=== PATIENT | female | born 1980 | race Caucasian/White ===

== ENCOUNTER 2022-09-07 13:37 | Outpatient (REF) | payer BC, SELFPAY | END 2022-09-07 13:38 | disposition home or self-care (01) | LOC: NCHCN 13:37 | PROVIDERS: Visit Provider Nurse Practitioner Family | DX: N30.01 Acute cystitis with hematuria (principal) | CPT/HCPCS: 87077; 87086; 87186 ==

== ENCOUNTER 2023-06-07 12:38 | Outpatient (REF) | payer MEDICAID, SELFPAY ==
[2023-06-07 21:09] LABS: Bilirubin Negative (Negative); Blood Negative (Negative); Clarity Clear (Clear); Glucose Negative (Negative); Ketones Negative (Negative); Leukocyte Esterase Negative (Negative); Nitrite Negative (Negative); Urobilinogen 0.2 mg/dL (Up to 0.2); pH 5.5 (5-8)
== END 2023-06-07 12:39 | disposition home or self-care (01) ==
LOC: LBN 12:38
PROVIDERS: Visit Provider Nurse Practitioner Family
DX: R35.0 Frequency of micturition (principal); R39.15 Urgency of urination; R39.89 Other symptoms and signs involving the genitourinary system
CPT/HCPCS: 81003

== ENCOUNTER 2023-07-05 11:34 | Observation (INO) | payer MEDICAID, SELFPAY ==
[2023-07-05] VITALS (12 sets, daily range): BP systolic 102–115; BP diastolic 53–71; PULSE 57–76; RESP 16–32; TEMP 36.2–37; O2SAT 100
--- NOTE | 2023-07-05 11:53 | ED.GENADUL_ITS ---
Discharge Plan Discharge Details Chief Complaint: GenMedical Primary Care Provider: Unknown,Unknown ED Provider: Beltran Agustin Home Meds and New Rx's Prescriptions: No Action escitalopram oxalate 20 mg tablet 20 mg PO DAILY buspirone 5 mg tablet 5 mg PO BID spironolactone 50 mg tablet 50 mg PO DAILY omeprazole 20 mg capsule,delayed release(DR/EC) 20 mg PO DAILY sumatriptan succinate 50 mg tablet 50 mg PO ONCE valacyclovir 1 gram tablet 1,000 mg PO DAILY HPI General Date/Time Provider Initiated Documentation: 07/05/23 11:53 . HPI Narrative: 42 year-old female presents to ED today by POV/ambulating with a chief complaint of vague constellation of symptoms- onset while showering on Wednesday- states she felt dizzy, then felt her legs were very heavy, vision was off, had to sit down for quite some time, and has been having trouble walking since then, she began to sweat and was shaking all over- but stayed awake the whole time. Quality described as felt very weird- has had brain fog since then as well, no radiation to palpitations, chest pain, syncope, loss of vision, fever, nausea/vomiting- states she does get dizzy with certain eye movements. Severity is described as severe. Palliating factors include nothing helping. 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 Patient not anticoagulated. Related Data Home Medications Medication Instructions Recorded Confirmed buspirone 5 mg tablet 5 mg PO BID 06/07/23 07/05/23 escitalopram oxalate 20 mg tablet 20 mg PO DAILY 06/07/23 07/05/23 omeprazole 20 mg capsule,delayed 20 mg PO DAILY 06/07/23 07/05/23 release spironolactone 50 mg tablet 50 mg PO DAILY 06/07/23 07/05/23 sumatriptan succinate 50 mg tablet 50 mg PO ONCE 06/07/23 07/05/23 valacyclovir 1 gram tablet 1,000 mg PO DAILY 06/07/23 07/05/23 Allergies Allergy/AdvReac Type Severity Reaction Status Date / Time No Known Allergies Allergy Verified 07/05/23 11:45 General Stated Complaint: GenMedical YAMILEX: 4 Review of Systems All systems reviewed & are unremarkable except as noted in HPI and below Exam Narrative Exam Narrative: GENERAL APPEARANCE: Well-nourished, non-toxic, awake and alert, atraumatic, no acute distress. SKIN: Warm, pink, dry, intact, without rashes/lesions/ulcerations. HEAD: Normocephalic, atraumatic, normal hair distribution for gender/age. EYES: Pupils PERRLA, EOMs intact with nystagmus, question very subtle vertical nystagmus, normal conjunctiva, no exudates on lids/lashes. ENT: Nares patent, no circumoral cyanosis, no facial swelling NECK: Supple, trachea midline, painless cervical ROM. LUNGS/CHEST: Lungs CTA bilaterally- no rhonchi/rales/wheezes diffusely, non- labored respirations, normal A/P diameter, symmetrical expansion, no chest wall deformity HEART (CV/PV): Regular rate and rhythm without murmur, no peripheral edema, no JVD, no caortid bruit. ABDOMEN: Soft, non-distended, no guarding, no tenderness. MSK: Normal ROM, no swelling/deformity to bilateral UEs or LEs, moving all extremities without weakness, no cyanosis, spine midline without tenderness, normal curvature. NEURO: Mental Status AAOx4 - alert to person, place, time, events No facial droop, no forehead involvement, some dysmetria with FNF on R hand, heel-conklin mildly abnormal also on R Motor: No focal weakness - strength 5/5 in bilateral UEs and LEs, proximal and distal, symmetric, question mild 4+/5 deficit in proximal legs Sensory: sensation intact to light touch globally. Gait ataxic & unsteady with heel walking, with [id number], Romberg present PSYCH: euthymic, cooperative, pleasant, appropriate speech Course Vital Signs Vital signs: Vital Signs Temperature 37.0 C 07/05/23 11:47 Pulse 72 07/05/23 11:47 Respiratory Rate 16 07/05/23 11:47 Blood Pressure 115/71 07/05/23 11:47 Pulse Oximetry 100 07/05/23 11:47 Temperature 37.0 C 07/05/23 11:47 Temperature Source Temporal Artery Scan 07/05/23 11:47 Pulse 72 07/05/23 11:47 Respiratory Rate 16 07/05/23 11:47 Respiratory Effort Normal, Non-Labored 07/05/23 11:51 Blood Pressure 115/71 07/05/23 11:47 Blood Pressure Position Sitting 07/05/23 11:47 Pulse Oximetry 100 07/05/23 11:47 Oxygen Delivery Method Room Air 07/05/23 11:47 Oxygen Flow Rate 0 07/05/23 11:47 Pain Level 0 07/05/23 11:47 Medical Decision Making This dictation utilizes [id number] dictation software and may contain unedited grammatical errors. 42 y/o F presents to ED today with a chief complaint of neurologic changes starting while taking a shower on Wednesday- reports her legs began to feel weak, had to sit down, got very flushed and was shaking- had visual changes that have been intermittent since then, and dizziness, with confusion- has a persistent headache since then. Patient denies stroke history, has been worked up for MS and treated for anaplasmosis in the past. Patient denies palpitations, chest pain, can recall the events, denies headstrike. Patients' medical history: Migraine syndrome. Family and social history: Noncontributory states her father had COPD, mother is alive and well. Pertinent exam findings / vital signs include dysmetria with [id number] on the right side as well as heel conklin on the right lower extremity, question vertical nystagmus-very subtle, Romberg present with unsteady gait, benign cardiopulmonary exam. Differential / pathologies of concern include CVA/TIA, SAH, Neuromuscular Disorder, Complex Migraine Syndrome. Diagnostic studies of: -CBC, BMP, CK, liver panel, CRP/ESR, EKG, POC urine test, TSH, ammonia, lactate, magnesium, tick panel, CTA head and neck. -CBC benign -BMP benign -LFTs wnl -CK mildly elevated, not to rhabdomyolysis levels -CRP/ESR WNL -TSH WNL -Ammonia negative -Lactate WNL -Magnesium WNL -Tick panel send out pending -POC Urine preg pending at time of sign-out -CTA not performed at time of sign-out Interventions of: -none. ED Course/Assessment/Plan: 42-year-old female presents with strange onset of dizziness and visual changes with some leg weakness on Wednesday while taking a shower. She has some dysmetria with the right upper and lower extremities as well as a question of subtle vertical nystagmus. Patient's laboratory workup is unremarkable I do not suspect metabolic encephalopathy, the patient has been had anaplasmosis treatment in the past as well as been worked up for MS. She is well outside of any window of intervention if this is a possible CVA if confirmed on CTA study. I signed out the patient to Sruthi Sarah PA-C at the time of shift change with pending imaging, she may need admission for CVA or TIA versus outpatient follow- up for neurology depending on findings. Findings not consistent with seizure activity, dispostion pending at sign-out. Medical Records Medical records reviewed: Yes I reviewed the patient's medical records. Lab Data Lab results reviewed: Yes I reviewed the patient's lab results. Labs: Laboratory Tests Range/Units 07/05/23 13:53 WBC (4.4-10.8) 10^3/uL 8.01 RBC (3.93-5.22) 10^6/uL 4.50 Hgb (11.2-15.7) g/dL 15.1 Hct (36.0-46.0) % 43.7 MCV (80-95) fL 97 H MCH (27.0-33.0) pg 33.6 H MCHC (32.0-36.0) % 34.6 RDW (11.7-14.6) % 11.9 Plt Count (130-400) 10^3/uL 217 MPV (8.0-11.0) fL 10.1 Immature Gran % 0.2 Neutrophils % 70.6 Lymphocytes % 22.3 Monocytes % 4.7 Eosinophils % 2.0 Basophils % 0.2 Nucleated RBC % (0.0-0.3) % 0.0 Absolute Neutrophils (1.2-6.7) 10^3/uL 5.64 Absolute Lymphocytes (1.2-3.4) 10^3/uL 1.79 Absolute Monocytes (0.1-0.8) 10^3/uL 0.38 Absolute Eosinophils (0.0-0.7) 10^3/uL 0.16 Absolute Basophils (0.0-0.2) 10^3/uL 0.02 ESR (0-20) mm/hr < 1 VBG Lactate (0.6-1.4) mmol/L 0.9 Sodium (136-145) mmol/L 141 Potassium (3.5-5.1) mmol/L 3.4 L Chloride (98-107) mmol/L 104 Carbon Dioxide (21.0-32.0) mmol/L 26.3 Anion Gap (3-11) mmol/L 10.7 BUN (7-18) mg/dL 9 Creatinine (0.55-1.02) mg/dL 0.6 Est GFR (CKD-EPI 2020) (mL/min/1.73m2) 114.86 Glucose (74-106) mg/dL 85 Calcium (8.5-10.1) mg/dL 8.5 Magnesium (1.8-2.4) mg/dL 1.8 Total Bilirubin (0.2-1.0) mg/dL 0.8 Conjugated Bilirubin (0.0-0.2) mg/dL 0.2 AST (15-37) U/L 29 ALT (14-59) U/L 22 Alkaline Phosphatase (46-116) U/L 47 Ammonia (11-32) umol/L 13 Creatine Kinase (26-192) U/L 195 H C-Reactive Protein (<or=0.5) mg/dL < 0.50 Total Protein (6.4-8.2) g/dL 6.4 Albumin (3.4-5.0) g/dL 3.8 TSH (0.36-3.74) uIU/mL 1.73 Quality:SDOH Health Related Social Needs: No Data to Display [facility] Social History Smoking/Tobacco Use Status: Never Smoking risk assessment performed?: Yes Alcohol Intake: never Drug use: Never Substance use type: does not use Housing: house Do you feel safe at home: Yes Do you feel safe in your relationship?: Yes Sign Out Sign Out Data: Sign Out Comment: Ataxia & dysmetria, onset Wednesday - visual changes, confusion, BURRELL, tingling of face -CTA pending, possibility for MRI -Question CVA/TIA, vs neuromuscular disorder (has had MS workup in the past) Last updated by Beltran Agustin PA at 07/05/23 15:49
--- NOTE | 2023-07-05 13:30 | DI.CT_ITS ---
Exam(s) CT BRAIN NECK CTA EXAM: CT BRAIN NECK CTA CLINICAL HISTORY: ataxic, dysmetria R hand. TECHNIQUE: Imaging Protocol: Axial CT angiography was performed with multi-slice acquisition and mu lti-planar and MIP reconstructions. CONTRAST MATERIAL: Intravenous: Omnipaque 350 Contrast volume:100 ml COMPARISON: No exams were available for comparison FINDINGS: CT Head W/O and W contrast: Ventricles and Extra axial spaces: Normal in size and morphology for the patient's age. Hemorrhage: None. Cerebral parenchyma: No evidence of acute infarct or mass. Midline shift: None. Brainstem/Cerebellum: No acute findings.. Calvarium: Normal. Visualized Paranasal sinuses/Mastoids: Clear. Soft Tissues: Unremarkable. Enhancement: Normal. CTA Brain W: Internal Carotid Arteries: Petrous: Normal. Cavernous: Normal. Cerebral: Normal. Middle Cerebral Arteries: Right: No aneurysm, occlusion or significant stenosis. Left: No aneurysm, occlusion or significant stenosis. Anterior Cerebral Arteries: Right: No aneurysm, occlusion or significant stenosis. Left: No aneurysm, occlusion or significant stenosis. Posterior cerebral Arteries: Right: No aneurysm, occlusion or significant stenosis. Left: No aneurysm, occlusion or significant stenosis. Vertebral Arteries: Right: No aneurysm, occlusion or significant stenosis. Left: No aneurysm, occlusion or significant stenosis. Basilar Artery: No aneurysm, occlusion or significant stenosis. CTA Neck W: Common Carotid: Right: No dissection, occlusion or significant stenosis. Left: No dissection, occlusion or significant stenosis. External Carotid: Right: No dissection, occlusion or significant stenosis. Left: No dissection, occlusion or significant stenosis. Internal Carotid: Right: No dissection, occlusion or significant stenosis. Left: No dissection, occlusion or significant stenosis. Vertebral Artery: Right: No dissection, occlusion or significant stenosis. Left: No dissection, occlusion or significant stenosis. Lung Apices: Normal. Bones: No acute abnormality. Soft Tissues: Bilateral breast implants partially included on the exam. IMPRESSION: 1. CTA brain: Normal CTA examination of the [place]. 2. Head CT: Unremarkable CT Head. 3. CTA neck: Normal CTA examination of the neck. RADIATION DOSE DELIVERED: 1,878.6mGy.cm Total DLP DATA REPOSITORY: All CT scans at this facility are submitted to the National Radiology Data Registry (NRDR) Dose Index Registry (DIR) with the [employer] ([employer]). RADIATION OPTIMIZATION: All CT scans at this facility use at least one of these dose optimization te chniques: automated exposure control; mA and/or kV adjustment per patient size (includes targeted exa ms where dose is matched to clinical indication); or iterative reconstruction.
--- NOTE | 2023-07-05 13:30 | RT.EKG_ITS ---
APPROVED REPORT Exam: Resting ECG Reason for Exam: baseline Patient Location: E HR:60 bpm ECG Measurements Heart Rate 60 AXIS RI 177 P 20 QRSd 92 QRS 68 QT 432 T 73 QTc 431 Conclusion Sinus rhythm...normal P axis, V-rate 60- 99 Physician: no stemi
[2023-07-05 14:03] LABS: Abs Immature Grans 0.02 10^3/uL (0.0-0.06); Absolute Basophil Count 0.02 10^3/uL (0.0-0.2); Absolute Eosinophil Count 0.16 10^3/uL (0.0-0.7); Absolute Lymphocyte Count 1.79 10^3/uL (1.2-3.4); Absolute Monocyte Count 0.38 10^3/uL (0.1-0.8); Absolute Neutrophil Count 5.64 10^3/uL (1.2-6.7); Basophils % 0.2; HCT 43.7 % (36.0-46.0); HGB 15.1 g/dL (11.2-15.7); Immature Grans % 0.2; Lymphocytes % 22.3; MCH 33.6 pg (27.0-33.0); MCHC 34.6 % (32.0-36.0); MCV 97 fL (80-95); MPV 10.1 fL (8.0-11.0); Monocytes % 4.7; Neutrophils % 70.6; Platelet Count 217 10^3/uL (130-400); RDW 11.9 % (11.7-14.6); WBC 8.01 10^3/uL (4.4-10.8)
[2023-07-05 14:05] LABS: Lactate 0.9 mmol/L (0.6-1.4)
[2023-07-05 14:07] LABS: ESR < 1 mm/hr (0-20)
[2023-07-05 14:22] LABS: Ammonia 13 umol/L (11-32)
[2023-07-05 14:31] LABS: ALT 22 U/L (14-59); AST 29 U/L (15-37); Albumin 3.8 g/dL (3.4-5.0); Alkaline Phosphatase 47 U/L (46-116); Anion Gap 10.7 mmol/L (3-11); BUN 9 mg/dL (7-18); Bilirubin, Direct 0.2 mg/dL (0.0-0.2); Bilirubin, Total 0.8 mg/dL (0.2-1.0); CO2 26.3 mmol/L (21.0-32.0); CREATININE 0.6 mg/dL (0.55-1.02); Calcium 8.5 mg/dL (8.5-10.1); Chloride 104 mmol/L (98-107); Creatine Kinase 195 U/L (26-192); Estimated GFR 114.86 (mL/min/1.73m2); Glucose 85 mg/dL (74-106); Magnesium 1.8 mg/dL (1.8-2.4); Potassium 3.4 mmol/L (3.5-5.1); Sodium 141 mmol/L (136-145); TSH (W/Ref FT4) 1.73 uIU/mL (0.36-3.74); Total Protein 6.4 g/dL (6.4-8.2)
[2023-07-05 14:32] LABS: C-Reactive Protein < 0.50 mg/dL (<or=0.5)
[2023-07-05] MEDS: Omnipaque 350 MG/ML 100 ML BTL IJ (16:16)
[2023-07-05] MEDS: Normal Saline - Diluent 50 ML VIAL IJ (16:18)
[2023-07-05] MEDS: ACETAMINOPHEN 1,000 MG/100 ML BTL 400 MG IVPB (18:15)
[2023-07-05] MEDS: Normal Saline 1,000 ML 1000 ML IV (18:15)
[2023-07-05] MEDS: Aspirin 81 MG CHEW 162 MG PO (18:15)
[2023-07-05 18:22] LABS: Troponin I < 50 ng/L (< or =60)
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
--- NOTE | 2023-07-05 20:01 | W.PC.ACHO ---
Registration Status: REG ER Primary Language: Preferred Language: ED Information & Data Chief Complaint GenMedical 07/05/23 14:11 Chief Complaint GenMedical 07/05/23 11:54 Triage Note pt with mult vague 07/05/23 11:47 complaints starting Sat with weakness and then took shower with pre-syncopal event followed by shaking/ sweating/awake and alert convulsion lasting 2-3 mins, cont weakness and visual issues, cont to feel cloudy and 'off/weird', hx of RA not on reg infusions since Nov r/t move, VSS. Most Recent Vital Signs Temperature 37.0 C 07/05/23 14:12 Temperature Source Temporal Artery Scan 07/05/23 14:12 Pulse 72 07/05/23 14:12 Pulse 65 07/05/23 17:30 Respiratory Rate 16 07/05/23 14:12 Respiratory Effort Normal, Non-Labored 07/05/23 14:12 Blood Pressure 115/71 07/05/23 14:12 Blood Pressure Position Sitting 07/05/23 14:12 Pulse Oximetry 100 07/05/23 14:12 Oxygen Delivery Method Room Air 07/05/23 14:12 Oxygen Flow Rate 0 07/05/23 14:12 Pain Level 0 07/05/23 14:12 Allergies No Known Allergies Allergy (Verified 07/05/23 11:45) Precautions Isolation Standard precaution 07/05/23 11:51 Active Medications Generic Name Dose Route Start Last Admin Trade Name Freq PRN Reason Stop Dose Admin Iohexol 100 ml 07/05/23 16:30 07/05/23 16:16 Omnipaque 350 Mg/Ml 100 Ml Btl IJ 08/04/23 23:59 85 ml DIRECTED RADHA Administration Sodium Chloride 50 ml 07/05/23 16:30 07/05/23 16:18 Normal Saline - Diluent 50 Ml Vial IJ 50 ml .FOR DI USE RADHA Administration IV IV Catheter Type [Left Saline Lock Antecubital] IV Catheter Gauge [Left 18 Antecubital] Diet Orders Category Date Time Status Regular/Normal [DIET] Nutrition 07/06/23 Breakfast Ordered Diagnostics 07/05/23 07/05/23 Range/Units 17:58 13:53 WBC 8.01 (4.4-10.8) 10^3/uL RBC 4.50 (3.93-5.22) 10^6/uL Hgb 15.1 (11.2-15.7) g/dL Hct 43.7 (36.0-46.0) % MCV 97 H (80-95) fL MCH 33.6 H (27.0-33.0) pg MCHC 34.6 (32.0-36.0) % RDW 11.9 (11.7-14.6) % Plt Count 217 (130-400) 10^3/uL MPV 10.1 (8.0-11.0) fL Immature Gran % 0.2 Neutrophils % 70.6 Lymphocytes % 22.3 Monocytes % 4.7 Eosinophils % 2.0 Basophils % 0.2 Nucleated RBC % 0.0 (0.0-0.3) % Absolute Neutrophils 5.64 (1.2-6.7) 10^3/uL Absolute Lymphocytes 1.79 (1.2-3.4) 10^3/uL Absolute Monocytes 0.38 (0.1-0.8) 10^3/uL Absolute Eosinophils 0.16 (0.0-0.7) 10^3/uL Absolute Basophils 0.02 (0.0-0.2) 10^3/uL ESR < 1 (0-20) mm/hr VBG Lactate 0.9 (0.6-1.4) mmol/L Sodium 141 (136-145) mmol/L Potassium 3.4 L (3.5-5.1) mmol/L Chloride 104 (98-107) mmol/L Carbon Dioxide 26.3 (21.0-32.0) mmol/L Anion Gap 10.7 (3-11) mmol/L BUN 9 (7-18) mg/dL Creatinine 0.6 (0.55-1.02) mg/dL Est GFR (CKD-EPI 2020) 114.86 (mL/min/1.73m2) Glucose 85 (74-106) mg/dL Calcium 8.5 (8.5-10.1) mg/dL Magnesium 1.8 (1.8-2.4) mg/dL Total Bilirubin 0.8 (0.2-1.0) mg/dL Conjugated Bilirubin 0.2 (0.0-0.2) mg/dL AST 29 (15-37) U/L ALT 22 (14-59) U/L Alkaline Phosphatase 47 (46-116) U/L Ammonia 13 (11-32) umol/L Creatine Kinase 195 H (26-192) U/L Troponin I < 50 (< or =60) ng/L C-Reactive Protein < 0.50 (<or=0.5) mg/dL Total Protein 6.4 (6.4-8.2) g/dL Albumin 3.8 (3.4-5.0) g/dL TSH 1.73 (0.36-3.74) uIU/mL B. divergens/MO-1 PCR Pending Babesia duncani (PCR) Pending Babesia microti DNA PCR Pending Lyme Disease Antibody Pending E.chaffeensis DNA (PCR) Pending E.ewingii/canis DNA PCR Pending E.muris eauclairensis (PCR) Pending A. phagocytophilum (PCR) Pending Blood B. miyamotoi (PCR) Pending Ssfya-mn-Omav Documentation POC Urine Test Start: 07/05/23 13:31 Freq: .Urine Test Status: Active Protocol: Activity Type Activity Date Activity User E-sign Co-sign Detail Recorded Client Recorded Date Recorded By Document 07/05/23 14:51 SUZETTE [id number] 07/05/23 14:51 SUZETTE Intake and Output - 24 Hour Total 07/05/23 11:34 thru 07/05/23 18:36 Intake Total 100 Balance 100 Weight 57.606 kg Intake: IV 100 Falls Risk Assessment History of Falls No History 07/05/23 14:12 Contributing Factors No Factors 07/05/23 14:12 Ambulatory Aids Independent 07/05/23 14:12 Tubes/Lines None 07/05/23 14:12 Gait Evaluation No gait disturbance 07/05/23 14:12 Cognition No cognitive impairment 07/05/23 14:12 Fall Total Score 0 07/05/23 14:12 Level of Risk Standard/Low Risk 07/05/23 14:12 Problems (Last Reviewed 07/05/23 @ 18:32 by Joseph Chase) Acne (Chronic) Migraine headache (Chronic) GERD without esophagitis (Chronic) Depression (Chronic) Traumatic injury of head (Chronic) Receptive dysphasia (Acute) Rheumatoid arthritis in remission (Chronic) Facial asymmetry (Acute) Ataxia (Acute) v v v v v v v v v Sending and/or Receiving Nurses: Please use comment section below to note any information pertinent to the patient hand-off not included above. Information / Comments: Report received from: Oliva BLEVINS
[2023-07-05] MEDS: Acetaminophen 325 MG TAB PO (20:39)
[2023-07-05] MEDS: busPIRone 5 MG TAB PO (20:39)
[2023-07-05] MEDS: Atorvastatin 40 MG TAB 80 MG PO (20:39)
[2023-07-06] VITALS (11 sets, daily range): BP systolic 89–108; BP diastolic 50–64; PULSE 56–102; RESP 13–19; TEMP 36.5–37.4; O2SAT 98–99
[2023-07-06] MEDS: Acetaminophen 325 MG TAB PO (06:26)
[2023-07-06 07:05] LABS: HCT 38.4 % (36.0-46.0); HGB 13.3 g/dL (11.2-15.7); MCH 33.3 pg (27.0-33.0); MCHC 34.6 % (32.0-36.0); MCV 96 fL (80-95); MPV 10.6 fL (8.0-11.0); Platelet Count 194 10^3/uL (130-400); RBC 3.99 10^6/uL (3.93-5.22); RDW 11.9 % (11.7-14.6); RDW-SD 42.1 fL; WBC 3.67 10^3/uL (4.4-10.8)
[2023-07-06 07:20] LABS: ALT 20 U/L (14-59); AST 21 U/L (15-37); Albumin 3.4 g/dL (3.4-5.0); Alkaline Phosphatase 43 U/L (46-116); Anion Gap 9.9 mmol/L (3-11); BUN 9 mg/dL (7-18); Bilirubin, Total 0.8 mg/dL (0.2-1.0); CO2 25.1 mmol/L (21.0-32.0); CREATININE 0.7 mg/dL (0.55-1.02); Calcium 8.2 mg/dL (8.5-10.1); Chloride 108 mmol/L (98-107); Estimated GFR 110.67 (mL/min/1.73m2); Glucose 88 mg/dL (74-106); Potassium 3.8 mmol/L (3.5-5.1); Sodium 143 mmol/L (136-145); Total Protein 5.9 g/dL (6.4-8.2)
[2023-07-06] MEDS: Aspirin 81 MG CHEW PO (08:00)
--- NOTE | 2023-07-06 08:00 | DI.MRI_ITS ---
Exam(s) MR BRAIN WO EXAM: MR BRAIN WO CLINICAL HISTORY: Ataxia with expressive dysphagia, facial asymmetry TECHNIQUE: Multiplanar multisequence MRI of the brain was performed. COMPARISON: CT CT BRAIN NECK CTA from 07/05/2023 FINDINGS: VENTRICLES AND EXTRA AXIAL SPACES: Normal in size and morphology for the patient's age. MIDLINE SHIFT: None. CEREBRAL PARENCHYMA: No focus of restricted diffusion to suggest acute infarct. No space-occupying le karla identified. No abnormal white matter changes. HEMORRHAGE: None. BRAINSTEM/CEREBELLUM: Normal. VISUALIZED PARANASAL SINUSES/MASTOIDS:Clear. Vasculature: Normal flow void. PITUITARY GLAND: Unremarkable. ORBITS: Unremarkable. IMPRESSION: Unremarkable MRI of the brain. DATA REPOSITORY:
[2023-07-06] MEDS: busPIRone 5 MG TAB PO (08:01)
[2023-07-06] MEDS: Omeprazole 20 MG CAPCR PO (08:01)
[2023-07-06] MEDS: Spironolactone 50 MG TAB PO (08:01)
[2023-07-06] MEDS: Escitalopram 20 MG TAB PO (08:01)
--- NOTE | 2023-07-06 08:23 | OT.INNT ---
Occupational Therapy Notes 07/06/23 Consult received and pts chart was reviewed. Pt is down at MRI this morning and OT will attempt to consult with pt again this morning when she returns. Zina Riggs, OTR/L
--- NOTE | 2023-07-06 08:49 | PDOC.CMIN ---
Date of service: 07/06/23 Time of Service: 08:49 Care Management Initial Assmt Initial Assessment REASON FOR HOSPITALIZATION:: ataxia PREVIOUS FUNCTIONAL STATUS/SOCIAL/FAMILY SUPPORTS:: Bre lives in a single family home in [place], [place] with her boyfriend and her 13 year old daughter. 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 CURRENT FUNCTIONAL STATUS:: Bre was lying in bed dozing when CM met with her. She was polite but not very talkative. Bre indicated that her symptoms came on suddenly and she does not usually have any difficulties with ambulation. She informed CM that her PCP was at [facility] but recently left the practice. She does not know the name of the provider she will be assigned to next. She shared that she would like to establish with a local provider, possibly at [facility]. CM explained the process to establish with a new provider. Prior to Bre's discharge an appointment was made with the [facility] Primary Care practice with Trinidad Yancey for the end of June. She will also follow up with [facility] Neurology. ADVANCE DIRECTIVES:: none on file Has patient been provided with info about the portal/API?: Yes Did the patient sign up for the portal?: No CODE STATUS:: Full Code INSURANCE COVERAGE / FINANCIAL ISSUES:: Medicaid CURRENT HOME/COMMUNITY SERVICES/EQUIPMENT:: none PRIMARY CARE PHYSICIAN:: Trinidad Yancey - [facility] POTENTIAL DISCHARGE NEEDS:: possibly establish with local PCP PATIENT/FAMILY EDUCATION NEEDS:: Review of discharge instructions, activity, limitations, follow up plan, discuss Ask Me Three TRANSPORTATION:: via private vehicle with family PLAN:: Anticipate Bre will be discharged home with no new services when medically cleared.. She will follow up with [facility] and her PCP and transport with family. CM will follow and continue to assess for discharge needs. PFSH All Active Problems (Updated 07/05/23 @ 19:00 by Joseph Chase) Acne (Chronic) Migraine headache (Chronic) GERD without esophagitis (Chronic) Depression (Chronic) Traumatic injury of head (Chronic) Receptive dysphasia (Acute) Rheumatoid arthritis in remission (Chronic) Facial asymmetry (Acute) Ataxia (Acute) Social History Smoking/Tobacco Use Status: Never Smoking risk assessment performed?: Yes Alcohol Intake: never Drug use: Never Substance use type: does not use Housing: house Do you feel safe at home: Yes Do you feel safe in your relationship?: Yes SDOH(Care Management) Screening Will the Patient Participate in the Screening?: Yes Do you worry about having a steady place to live?: no Problems where you live: no known problems In the past 12 months, have you had to go without electric, gas, oil or water in your home?: no Have you or anyone in your house had to go without enough food to eat?: no Has lack of transportation kept you from medical appointments or from doing things needed for daily living?: no Has anyone in your support network made you feel unsafe for any reason?: no
--- NOTE | 2023-07-06 08:54 | OT.INIE ---
Occupational Therapy Notes Inpatient Occupational Therapy Evaluation Date: 07/06/23 Referring Doctor: Dr. Benjamin OT Orders: Non Urgent Precautions: Fall, Standard, Full PATIENT PROFILE/ADMITTING DIAGNOSIS: Pt is a 42 year old female who presented to the ED on 07/05/23 reporting her onset while showering on Wednesday. She states she felt dizzy, then felt her legs were very heavy, vision was off, had to sit down for quite some time, and has been having trouble walking since then, she began to sweat and was shaking all over- but stayed awake the whole time. as reported to the ED. She notes that overall she feels fine today except the pressure in her head. Past Medical History: All Active Problems (Updated 07/05/23 @ 19:00 by Joseph Chase) Acne (Chronic) Migraine headache (Chronic) GERD without esophagitis (Chronic) Depression (Chronic) Traumatic injury of head (Chronic) Receptive dysphasia (Acute) Rheumatoid arthritis in remission (Chronic) Facial asymmetry (Acute) Ataxia (Acute) Social History/Home Situation: Pt lives in a private home with her significant other and daughter. She has 3 children. She moves to [place] from [place] in March. She states that she is (I) with her ADL/IADL routines at baseline. Her gait imbalance she states started yesterday prior to her arrival. Equipment owned/DME: None SUBJECTIVE: Pt was sitting in bed when OT arrived. She states that she is doing well but is not sure that she needs Occupational Therapy at this time. She is pleasant and reports pressure in her head. She had an MRI this morning so she is awating the results and hoping to go home today. OBJECTIVE: General Observation: Pleasant, IV in UE, asymmetrical facial symmetry, walking with sway and uneven gait pattern, responds well to VC and has good positional awareness for (B) UE. Mental Status: A&Ox4 Pain: c/o pain in head which she notes when she sits up for too long she has increased pressure. ROM: RUE AROM WFL L UE AROM WFL STRENGTH: RUE symmetrical 4/5 throughout globally LUE symmetrical 4/5 throughout globally FUNCTIONAL MOBILITY/ADLS: Transfers without (A) device Supine-sit (I) Sit-supine (I) Sit-Stand (I) Stand-sit (I) Bed-Sink SBA Sink-bed SBA BATHING Pt denies full body bathing and states that she would like to wait until she goes home. Bathing UE agreeable to walk to sink, (I) washed her face, hands and neck without (A), no LOB and no VC required. DRESSING seated on side of bed Dressing UE NT today. However pt has ideal ROM to be able to perform this without (A). Dressing LE (I) don and doffing (B) socks and shoes. She has ROM to be able to perform her pants (I) as well without (A) GROOMING standing at sink (I) with oral hygiene SBA for decreased balance but no (A) needed for set up or clean up. TOILETING NT EATING seated in bed she is (I) with drinking liquids with hand to mouth and reports no difficulty with chewing or swallowing. BALANCE: Static sitting Normal Dynamic Sitting Normal Static Standing Good Dynamic Standing Fair-Good SPECIAL TESTS: Daily Activity Limitations Standardized Measure [facility] AM -PAC ?6 clicks? Daily Activity Inpatient Short Form: Raw score:24 INFORMED CONSENT/EDUCATION: Pt instructed in purpose of OT Consult and plan of care. ASSESSMENT: Patient is a 42-year-old female referred to occupational therapy services with diagnosis of migraine headache, GERD wth esophagitis, rheumatoid arthritis in remission, facial asymmetry, ataxia, receptive dysphagai, traumatic injury of head. Patient presents with clinical signs and symptoms consistent with dx. Pt was seen for OT consult this morning and assessment of her functional (I) in regards to her ADL/IADL routines was assessed. Pt was able to perform her ADLs in the sitting and standing positions (I). She has difficulty with her functional mobility and describes this as an unsteadiness. OT feels that pt from a functional stand point could return home pending her PT evaluation on her unsteady gait. She does require SBA for her walking but can maintain and standing tolerance in static position without difficulty and is able to hold on to surfaces to decrease her sway in her gait pattern. AMPAC score 24 Patient is assessed as a Low 02329 complexity based on the following: History: see above Examination: see functional limitations as noted above Presentation: evolving Decision Making: AMPAC score 24 GOALS N/A seen for OT consult only. PLAN OF CARE/TREATMENT PLAN: Seen for OT consult only- discharge from skilled OT services. DISCHARGE RECOMMENDATIONS Home when medically cleared per MD pending PT evaluation for mobility. TREATMENT TIME/MINUTES/CODES [id number], [id number] Zina Riggs OTR/[facility] [place], [place]
[2023-07-06] MEDS: valACYclovir 1,000 MG TAB 1000 MG PO (08:55)
[2023-07-06] MEDS: Normal Saline Flush 10 ML SYR IVP (08:57)
[2023-07-06 10:32] LABS: Lyme Ab w Rflx to Lyme Confirm Negative (Negative)
--- NOTE | 2023-07-06 11:24 | DSE_ITS ---
Date of service: 07/06/23 Time of Service: 11:25 DS: Diagnosis Discharge Diagnosis (1) Ataxia: Status: Acute (2) Receptive dysphasia: Status: Acute (3) Facial asymmetry: Status: Acute (4) Traumatic injury of head: Status: Chronic (5) Rheumatoid arthritis in remission: Status: Chronic (6) Depression: Status: Chronic (7) GERD without esophagitis: Status: Chronic (8) Migraine headache: Status: Chronic (9) Acne: Status: Chronic Discharge Plan Disposition Patient Disposition: Home Condition: Stable Discharge Details Reason For Visit: Ataxia, Receptive dysphagia, Facial asymmetry Admit Date/Time: 07/05/23 18:42 Admit Provider: Joseph Chase Attending Provider: Joseph Chase Primary Care Provider: Unknown,Unknown Hospital Course Hospital Course: Admitted to the medical surgical unit for MRI after found to have unsteady gait and generalized weakness. Also reported a headache. This headache was not like her typical migraine with no nausea vomiting. Her workup in the emergency department was unremarkable prior to arrival reportedly having staring spells. After negative workup and evaluation her case was discussed with [facility] neurology and because of her short episodes of staring past the interviewer, her daughter and her coworkers, it was thought she may be having absence seizure's but neurology at [facility] did not recommend initiating a ntiepileptics but did recommend an aspirin and high-dose atorvastatin with continuation of stroke evaluation if MRI positive. She manifested no dysrhythmias on quality assurance monitor in the ED and will continue monitoring with echocardiogram with bubble study deferred until after MRI. Overnight she remained medically stable with no new symptoms. Her MRI was completed and with no findings to explain her symptoms. Her MRI was unremarkable. She is stable and ready for discharge to home with no new services. [facility] neurology will see her for follow-up and EEG outpatient has been placed. discharge discussed with DR Francisco [place] Meds and New Rx's Prescriptions: Continued escitalopram oxalate 20 mg tablet 20 mg PO DAILY buspirone 5 mg tablet 5 mg PO BID spironolactone 50 mg tablet 50 mg PO DAILY omeprazole 20 mg capsule,delayed release(DR/EC) 20 mg PO DAILY sumatriptan succinate 50 mg tablet 50 mg PO ONCE valacyclovir 1 gram tablet 1,000 mg PO DAILY Discharge Instructions Instructions: Cognitive Disorders after Traumatic Brain Injury (DC) Additional Instructions: your MRI showed no findings to explain your symptoms, with no acute findings: No focus of restricted diffusion to suggest acute infarct. No space-occupying lesion identified. No abnormal white matter changes. You will be scheduled for outpatient EEG and neurology follow up. continue your medication as previously directed. Referrals: NEUROLOGY,[facility] [OTHER] - Activity:: Activity as Tolerated Equipment/Supplies:: No Equipment Needed Diet:: As Tolerated Discharge Orders Discharge Orders: Discharge Order (Routine); Ordered 07/06/23 Ordered By: Luna Hoang Other Ambulatory Orders: EEG(Regular) (Routine) Location: None Selected Ordered By: Luna Hoang DS: Summary Time Spent with Patient providing and/or coordinating discharge services: Less than 30 minutes Status at Discharge Functional status at discharge: independent ambulation Overall status at discharge: patient is progressing back to baseline Mental Status: mental status grossly normal Speech and Movement: speech and movement normal Mood: congruent mood Affect: blunted Quality:SDOH Health Related Social Needs: No Data to Display Exam Narrative Exam Narrative: Well-appearing female of stated age no acute distress laying on the bed. Head is atraumatic EOMs intact eyes nonicteric noninjected Neck with full range of motion Respirations even and unlabored Skin is pink warm dry well-perfused She is moving all extremities equally Psychiatric blunted mood and affect Neurologic awake alert oriented no focal deficits Psych Mental Status: mental status grossly normal Speech and Movement: speech and movement normal Mood: congruent mood Affect: blunted DS: Data Vitals/I&O Vitals and I&O: Vital Signs Temperature 36.5 C 07/06/23 02:00 Temperature Source Temporal Artery Scan 07/05/23 20:15 Pulse 70 07/06/23 10:37 Pulse Rhythm Regular 07/06/23 07:27 Pulse 75 07/06/23 10:22 Respiratory Rate 18 07/06/23 10:22 Respiratory Effort Normal, Non-Labored 07/06/23 07:27 Respiratory Depth Normal 07/06/23 07:27 Respiratory Pattern Normal 07/06/23 07:27 Blood Pressure 98/50 L 07/06/23 10:37 Blood Pressure Mean 72 07/06/23 10:22 Blood Pressure Position Sitting 07/05/23 14:12 Pulse Oximetry 98 07/06/23 10:21 Oxygen Delivery Method Room Air 07/05/23 20:15 Oxygen Flow Rate 0 07/05/23 20:15 Pain Level 0 07/05/23 14:12 Intake & Output 07/05/23 07/05/23 07/06/23 11:59 23:59 11:59 Intake Total 1100 / 1100 360 / 360 Balance 1100 / 1100 360 / 360 Weight 57.606 kg 57.9 kg Intake: IV 1100 / 1100 Oral 360 / 360 Data Completed and Pending Labs on day of discharge: Labs from last 24 hours 07/06/23 07/05/23 07/05/23 05:53 17:58 13:53 WBC 3.67 L 8.01 RBC 3.99 4.50 Hgb 13.3 15.1 Hct 38.4 43.7 MCV 96 H 97 H MCH 33.3 H 33.6 H MCHC 34.6 34.6 RDW 11.9 11.9 Plt Count 194 217 MPV 10.6 10.1 Immature Gran % 0.2 Neutrophils % 70.6 Lymphocytes % 22.3 Monocytes % 4.7 Eosinophils % 2.0 Basophils % 0.2 Nucleated RBC % 0.0 Absolute Neutrophils 5.64 Absolute Lymphocytes 1.79 Absolute Monocytes 0.38 Absolute Eosinophils 0.16 Absolute Basophils 0.02 ESR < 1 VBG Lactate 0.9 Sodium 143 141 Potassium 3.8 3.4 L Chloride 108 H 104 Carbon Dioxide 25.1 26.3 Anion Gap 9.9 10.7 BUN 9 9 Creatinine 0.7 0.6 Est GFR (CKD-EPI 2020) 110.67 114.86 Glucose 88 85 Calcium 8.2 L 8.5 Magnesium 1.8 1.8 Total Bilirubin 0.8 0.8 Conjugated Bilirubin 0.2 AST 21 29 ALT 20 22 Alkaline Phosphatase 43 L 47 Ammonia 13 Creatine Kinase 195 H Troponin I < 50 C-Reactive Protein < 0.50 Total Protein 5.9 L 6.4 Albumin 3.4 3.8 TSH 1.73 B. divergens/MO-1 PCR Pending Babesia duncani (PCR) Pending Babesia microti DNA PCR Pending Lyme Disease Antibody Pending E.chaffeensis DNA (PCR) Pending E.ewingii/canis DNA PCR Pending E.muris eauclairensis (PCR) Pending A. phagocytophilum (PCR) Pending Blood B. miyamotoi (PCR) Pending [facility] All Active Problems (Updated 04/15/24 @ 19:00 by Joseph Chase) Acne (Chronic) Migraine headache (Chronic) GERD without esophagitis (Chronic) Depression (Chronic) Traumatic injury of head (Chronic) Receptive dysphasia (Acute) Rheumatoid arthritis in remission (Chronic) Facial asymmetry (Acute) Ataxia (Acute) Social History Smoking/Tobacco Use Status: Never Smoking risk assessment performed?: Yes Alcohol Intake: never Drug use: Never Substance use type: does not use Housing: house Do you feel safe at home: Yes Do you feel safe in your relationship?: Yes Time Spent with Patient Time Spent with Patient: <45 minutes Time was spent: preparing to see the patient(eg.review tests), obtaining and/or reviewing separately otained hiistory, ordering medications,tests, procedures, indepentently interpreting results and counseling the patient
--- NOTE | 2023-07-06 13:16 | PT.INNT ---
PT Notes Visit Reasons: Ataxia, Receptive dysphagia, Facial asymmetry Patient discharged by MD with no needed home health PT services. No Pt services provided for this admission.
[2023-07-06 13:17] LABS: Magnesium 2.2 mg/dL (1.8-2.4)
--- NOTE | 2023-07-06 13:45 | PDOC.CMDIS ---
Date of service: 07/06/23 Time of Service: 13:45 LACE Index Scoring Tool Questions: Length of Stay (in days): 1 Was the patient admitted via the E.D.?: Yes E.D. Visits: 1 Answers: Total Score: 5 Risk of Readmission: Low Risk Care Management Discharge Plan Reason for Hospitalization: ataxia Discharge Plan: Bre will be discharged home with no new services. She will follow up with [facility] neurology and her PCP and transport with family. Patient/Family Education Needs: Review of discharge instructions, activity, limitations, follow up plan, discuss Ask Me Three [facility] Health Related Social Needs: No Data to Display
[2023-07-07 18:59] LABS: Anaplasma phagocytophilum Negative (Negative); B. miyamotoi PCR Negative (Negative); Babesia divergens/MO-1 Negative (Negative); Babesia duncani Negative (Negative); Babesia microti Negative (Negative); Ehrlichia chaffeensis Negative (Negative); Ehrlichia ewingii/canis Negative (Negative); Ehrlichia muris eauclairensis Negative (Negative)
== END 2023-07-06 12:11 | disposition home or self-care (01) ==
LOC: ER 19:02 → ICU 07-06 10:13
PROVIDERS: Physician Assistant; Admitting Provider Family Medicine; Emergency Provider Physician Assistant; Visit Provider Family Medicine
DX: R27.0 Ataxia, unspecified (principal); S09.90XD Unspecified injury of head, subsequent encounter; G43.809 Other migraine, not intractable, without status migrainosus; R53.1 Weakness; M06.9 Rheumatoid arthritis, unspecified; R47.02 Dysphasia; F32.9 Major depressive disorder, single episode, unspecified; K21.9 Gastro-esophageal reflux disease without esophagitis; Z79.899 Other long term (current) drug therapy; L70.8 Other acne; R29.810 Facial weakness; H55.09 Other forms of nystagmus
CPT/HCPCS: 00123; 36415; 70496; 70498; 80048; 80053; 80076; 81025; 82550; 85027; 85652; 87798; 93005; 96361; 96365; 97165; 97535; 99285; 70551; 82140; 83605; 83735; 84443; 84484; 85025; 86140; 86618; 93010; 99223; 99238; G0378; J0131; J3490

== ENCOUNTER 2024-02-23 20:00 | Outpatient (REF) | payer MEDICAID, SELFPAY | END 2024-02-23 20:01 | disposition home or self-care (01) | LOC: LBN 20:00 | PROVIDERS: Visit Provider Physician Assistant | DX: N39.0 Urinary tract infection, site not specified (principal) | CPT/HCPCS: 87077; 87086; 87186 ==

== ENCOUNTER 2024-05-11 11:06 | Outpatient (CLI) | payer MEDICAID, SELFPAY ==
--- NOTE | 2024-05-11 09:00 | DI.RAD_ITS ---
Exam(s) XR CHEST 2V PA LATERAL EXAM: XR CHEST 2V PA LATERAL CLINICAL HISTORY: eval pna, COUGH R05.9 TECHNIQUE: 2D digital imaging was performed of the chest. Images were obtained. PA and lateral v iews were obtained. COMPARISON: No exams were available for comparison FINDINGS: MEDIASTINUM: Normal. HEART: Normal. PULMONARY VASCULATURE: Normal. LUNGS: Clear. PLEURAL SPACE: No pleural effusion or pneumothorax. BONE:Within normal limits for the patient's age. OTHER FINDINGS:Normal. IMPRESSION: No acute pulmonary findings. DATA REPOSITORY: RADIATION DOSE DELIVERED:
== END 2024-05-11 11:26 ==
PROVIDERS: Visit Provider Nurse Practitioner Family
DX: R05.9 Cough, unspecified (principal)
CPT/HCPCS: 71046

== ENCOUNTER 2024-05-19 16:10 | Outpatient (REF) | payer MEDICAID, SELFPAY | END 2024-05-19 16:11 | disposition home or self-care (01) | LOC: NCHCN 16:10 | PROVIDERS: Visit Provider Physician Assistant | DX: R35.0 Frequency of micturition (principal); B96.29 Other Escherichia coli [E. coli] as the cause of diseases classified elsewhere | CPT/HCPCS: 87077; 87086; 87186 ==

== ENCOUNTER 2024-10-11 10:21 | Outpatient (CLI) | payer MEDICAID, SELFPAY ==
[2024-10-11 13:28] LABS: Abs Immature Grans 0.02 10^3/uL (0.0-0.06); HCT 41.1 % (36.0-46.0); HGB 14.3 g/dL (11.2-15.7); Immature Grans % 0.3 %; MCH 33.3 pg (27.0-33.0); MCHC 34.8 % (32.0-36.0); MCV 96 fL (80-95); MPV 10.3 fL (8.0-11.0); Platelet Count 208 10^3/uL (130-400); RBC 4.29 10^6/uL (3.93-5.22); RDW 11.8 % (11.7-14.6); RDW-SD 41.4 fL; WBC 7.35 10^3/uL (4.4-10.8)
[2024-10-11 14:07] LABS: ALT 26 U/L (14-59); AST 22 U/L (15-37); Albumin 3.9 g/dL (3.4-5.0); Alkaline Phosphatase 52 U/L (46-116); Anion Gap 8.3 mmol/L (3-11); BUN 11 mg/dL (7-18); Bilirubin, Total 0.7 mg/dL (0.2-1.0); CO2 27.7 mmol/L (21.0-32.0); Calcium 9.2 mg/dL (8.5-10.1); Chloride 101 mmol/L (98-107); Estimated GFR 118.53 (mL/min/1.73m2); Glucose 97 mg/dL (74-106); Potassium 3.9 mmol/L (3.5-5.1); Sodium 137 mmol/L (136-145); TSH (W/Ref FT4) 1.12 uIU/mL (0.36-3.74); Total Protein 6.9 g/dL (6.4-8.2)
[2024-10-11 14:16] LABS: Hemoglobin A1C 5.0 % (<5.7)
== END 2024-10-11 10:22 | disposition home or self-care (01) ==
PROVIDERS: Visit Provider Family Medicine
DX: R42 Dizziness and giddiness (principal); Z51.81 Encounter for therapeutic drug level monitoring
CPT/HCPCS: 36415; 80053; 83036; 84443; 85025

== ENCOUNTER 2024-11-16 03:19 | Outpatient (CLI) | payer MEDICAID, SELFPAY ==
--- NOTE | 2024-11-16 12:30 | DI.RAD_ITS ---
Exam(s) XR ABDOMEN FLAT PLATE EXAM: XR ABDOMEN FLAT PLATE CLINICAL HISTORY: IRREGULAR BOWEL HABITS,R19.8, ASSESS FECAL LOADING. TECHNIQUE: 2D digital imaging was performed. COMPARISON: No exams were available for comparison FINDINGS: AP supine view of the abdomen-pelvis. The bowel gas pattern is nonspecific in the supine position. Amount of fecal material in the colon is within normal limits. There is no prominent fecal material in the rectum. Stomach is not distended. There is a single tubal ligation clip which is in left side of the pelvis. Suture line in the soft tissues in the right-side of the pelvis noted. There are no calcifications seen over the kidneys nor along course of the upper ureters. Round calcifications in both sides the pelvis are probably phlebo liths. A regional bones appear unremarkable as do the sacroiliac joints. There is no scoliosis in the lumbar spine. IMPRESSION: Nonspecific bowel gas pattern. No prominent fecal loading Left-sided tubal ligation clip. Right side suture line in the pelvis. DATA REPOSITORY: RADIATION DOSE DELIVERED:
== END 2024-11-16 03:39 ==
PROVIDERS: PCP Physician Assistant; Visit Provider Nurse Practitioner Family
DX: R19.8 Other specified symptoms and signs involving the digestive system and abdomen (principal)
CPT/HCPCS: 74018